=== PATIENT | female | born 1965 | race African-American/Black ===

== ENCOUNTER 2016-06-14 20:35 | Emergency (ER) | payer OTHER ==
--- NOTE | ~2016-06-14 | CR172 ---
[facility] A Service of [facility] RADIOLOGY TEXT RESULTS PATIENT: NORBERT FERNANDEZ LOCATION: CFTX : 63 UNIT #: [id number] AGE: [address]: DAGOBERTO EL APRN SEX: F ORDER DR: [id number] [facility] [address] [place], [place] [address] [id number] E MR#: [id number] #: [id number] NAME: NORBERT FERNANDEZ : 1965 SEX: F STUDY DATE/TIME: 06/14/2016 20:17 UNIT: [facility] ROOM: STUDY DESCRIPTION: CR Knee 3 Views Lt Attending Physician: Dagoberto El Aprn Ordering Physician: Dagoberto El Aprn Primary Care Physician: No Primary Care Physician MEDICAL IMAGING REPORT This report is preliminary unless electronic signature is present EXAM Left knee, 3 views. DATE OF EXAM 06/14/2016 HISTORY Knee pain and swelling for 8 months. No injury. FINDINGS 3 views of the right knee demonstrate mild degenerative narrowing in the medial compartment and in the lateral patellofemoral compartment. Small medial joint line marginal osteophytes. No fracture or effusion. IMPRESSION No acute findings. Dictated by... Eamon Chaudhry M.D. THIS IS AN ELECTRONICALLY VERIFIED REPORT Eamon Chaudhry M.D. at 06/16/2016 12:05 AM RAI/tim TD: 06/14/2016 23:29 JOB #: [id number] MEDICAL IMAGING REPORT COPY
== END 2016-06-14 21:20 | disposition home or self-care (01) ==
LOC: CFTX 20:35
DX: M25.562 Pain in left knee (principal); G89.29 Other chronic pain; I10 Essential (primary) hypertension
CPT/HCPCS: 29530; 73562; 99283